=== PATIENT | female | born 1990 | race Caucasian/White ===

== ENCOUNTER 2018-04-21 05:47 | Day surgery (SDC) | payer OTHER ==
[2018-04-21] MEDS: BUPIVACAINE 0.25% (MPF) 30 ML INJ
[2018-04-21] MEDS ORDERED: CEFAZOLIN 2 GM/50 ML (PMX) 50 ML IVPB (06:00)
[2018-04-21] MEDS: SOD CHLORIDE 0.9% 1,000 ML IV (06:07)
[2018-04-21] MEDS ORDERED: ROCURONIUM 50 MG INJ (07:19)
[2018-04-21] MEDS ORDERED: CEFAZOLIN 1 GM INJ (07:19)
[2018-04-21] MEDS ORDERED: PROPOFOL 20 ML (07:19)
[2018-04-21] MEDS ORDERED: NEOSTIGMINE 3 MG/3 ML SYRINGE (07:19)
[2018-04-21] MEDS ORDERED: ONDANSETRON 4 MG INJ (07:19)
[2018-04-21] MEDS ORDERED: FENTAnyl 50 MCG/ML VIAL (07:19)
[2018-04-21] MEDS ORDERED: MIDAZOLAM 1 MG/ML 2 ML INJ (07:19)
[2018-04-21] MEDS ORDERED: DEXAMETHASONE 4 MG/ML 1 ML INJ (07:20)
[2018-04-21] MEDS ORDERED: BUPIVACAINE 0.25% (MPF) 30 ML INJ (07:23)
[2018-04-21] MEDS ORDERED: DIPHENHYDRAMINE 50 MG INJ IV (08:00)
[2018-04-21] MEDS ORDERED: hydrALAzine 20 MG INJ IV (08:00)
[2018-04-21] MEDS ORDERED: EPHEDrine SULFATE 50 MG/5 ML SYG IV (08:00)
[2018-04-21] MEDS ORDERED: IPRATROPIUM (NEB) 0.5 MG/2.5 ML AMP HHN (08:00)
[2018-04-21] MEDS ORDERED: FENTAnyl 50 MCG/ML VIAL IV ×2 (08:00)
[2018-04-21] MEDS ORDERED: ALBUTEROL 0.083% (NEB) 2.5 MG/3 ML AMP HHN (08:00)
[2018-04-21] MEDS ORDERED: LABETALOL HCL 20MG INJ IV (08:00)
[2018-04-21] MEDS ORDERED: HYDROmorphONE 1 MG/5 ML IV SYRINGE IV ×3 (08:00)
[2018-04-21] MEDS ORDERED: OXYCODONE/ACETAMINOPHEN (5/325) TAB PO (08:00)
[2018-04-21] MEDS ORDERED: TRIMETHOBENZAMIDE 100 MG/ML VIAL IM (08:00)
[2018-04-21] MEDS ORDERED: MIDAZOLAM 1 MG/ML 2 ML INJ IV (08:00)
[2018-04-21] MEDS ORDERED: SUGAMMADEX SODIUM 200 MG/2 ML VIAL IV (08:23)
[2018-04-21] MEDS ORDERED: HYDROCODONE/APAP (5/325) TAB PO (08:30)
[2018-04-21] MEDS: ONDANSETRON 4 MG INJ IV (08:43)
[2018-04-21] MEDS: MEPERIDINE 25 MG INJ IV (08:44)
[2018-04-21] MEDS: FENTAnyl 50 MCG/ML VIAL IV (08:53)
[2018-04-21] MEDS: OXYCODONE/ACETAMINOPHEN (5/325) TAB PO (09:58)
== END 2018-04-21 10:46 | disposition home or self-care (01) ==
LOC: SDS 05:47
DX: K80.10 Calculus of gallbladder with chronic cholecystitis without obstruction (principal)
CPT/HCPCS: 47562; 88304